=== PATIENT | female | born 1985 | race Caucasian/White ===

== ENCOUNTER 2018-09-12 12:03 | Emergency (ER) | payer BC ==
--- NOTE | 2018-09-12 12:22 | EDM.PDOC ---
ED HPI GENERAL MEDICAL PROBLEM - General Chief Complaint: Chest Pain Stated Complaint: CHEST PAIN AND LIGHT HEADED Time Seen by Provider: 09/12/18 12:22 - History of Present Illness INITIAL COMMENTS - FREE TEXT/NARRATIVE: 33-year-old female presents emergency room with chest pain. This pain started shortly before noon. Lasted 2-3 minutes and started to improve it was a sharp substernal chest pain worsened by breathing. Prior to this the patient has not had any problems. The pain is improving to the point that she needs nothing for the pain control this point but it is still there. Patient has no significant family history of coronary artery disease no history of blood clots no family history of blood clots or bleeding abnormalities. She has no history of GERD or dyspepsia and no symptoms to go along with this. The patient does not smoke. She has been off oral control pills for nearly 2 years absolutely denies the possibility of . Mid-Sternal Chest Pain Score (Numeric/FACES): 7 - Related Data Allergies Allergy/AdvReac Type Severity Reaction Status Date / Time No Known Allergies Allergy Verified 09/12/18 12:10 Home Meds: Home Meds . [No Known Home Meds] 09/12/18 [History] Past Medical History - Past Health History Medical/Surgical History: Denies Medical/Surgical History Social & Family History - Tobacco Use Smoking Status *Q: Never Smoker - Caffeine Use Caffeine Use: Reports: Soda - Recreational Drug Use Recreational Drug Use: No ED ROS GENERAL - Review of Systems Review Of Systems: See Below Constitutional: Reports: No Symptoms HEENT: Reports: No Symptoms Respiratory: Denies: Shortness of Breath, Cough, Sputum Cardiovascular: Reports: Chest Pain. Denies: Dyspnea on Exertion, Edema, Palpitations, Syncope Endocrine: Reports: No Symptoms GI/Abdominal: Reports: No Symptoms : Reports: No Symptoms Neurological: Reports: No Symptoms Psychiatric: Reports: No Symptoms ED EXAM, GENERAL - Physical Exam Exam: See Below Exam Limited By: No Limitations General Appearance: Alert, No Apparent Distress Head: Atraumatic, Normocephalic Neck: Normal Inspection, Supple, Non-Tender, Full Range of Motion Respiratory/Chest: No Respiratory Distress, Lungs Clear, Normal Breath Sounds, No Accessory Muscle Use, Chest Non-Tender Cardiovascular: Normal Peripheral Pulses, Regular Rate, Rhythm, No Edema, No Murmur GI/Abdominal: Normal Bowel Sounds, Soft, Non-Tender Back Exam: Normal Inspection, Full Range of Motion. No: CVA Tenderness (L), CVA Tenderness (R) Extremities: Normal Inspection, No Pedal Edema EKG INTERPRETATION EKG Date: 09/12/18 Rhythm: NSR Barling: Normal P-Wave: Present QRS: Normal ST-T: Normal QT: Normal Comparison: NA - No Prior EKG EKG Interpretation Comments: Normal EKG Course - Vital Signs Last Recorded V/S: Last Vital Signs Temp 36.4 C 09/12/18 12:08 Pulse 88 09/12/18 12:08 Resp 16 09/12/18 12:08 BP 125/88 09/12/18 12:08 Pulse Ox 99 09/12/18 12:08 - Orders/Labs/Meds Orders: Active Orders 24 hr Category Date Time Status EKG Documentation Completion [RC] STAT Care 09/12/18 12:32 Active Labs: Laboratory Tests 09/12/18 09/12/18 09/12/18 Range/Units 12:49 12:49 12:49 D-Dimer, Quantitative < 0.19 L (0.19-0.50) mg/L Sodium 141 (136-145) mEq/L Potassium 3.3 L (3.5-5.1) mEq/L Chloride 105 (98-107) mEq/L Carbon Dioxide 26 (21-32) mEq/L Anion Gap 13.3 (5-15) BUN 21 H (7-18) mg/dL Creatinine 0.8 (0.55-1.02) mg/dL Est Cr Clr Drug Dosing 87.18 mL/min Estimated GFR (MDRD) > 60 (>60) mL/min BUN/Creatinine Ratio 26.3 H (14-18) Glucose 127 H (74-106) mg/dL Calcium 8.8 (8.5-10.1) mg/dL Troponin I < 0.017 (0.00-0.056) ng/mL HCG, Qual Negative (NEGATIVE) - Re-Assessments/Exams Free Text/Narrative Re-Assessment/Exam: 09/12/18 14:12 Patient continues to improve on her own basic metabolic panel unremarkable d- dimer unremarkable troponin unremarkable my interpretation chest x-ray is that of normal. The patient feels comfortable going home at this point he agrees to follow-up is recommended Departure - Departure Time of Disposition: 14:14 Disposition: Home, Self-Care 01 Clinical Impression: Chest wall pain Referrals: PCP,None [Primary Care Provider] - Forms: ED Department Discharge Additional Instructions: Return to the emergency room with any questions problems worsening symptoms. Use Naprosyn one or 2 twice daily with meals as needed for discomfort. Take with meals. Follow-up in the Hospital clinic on Sunday if needed. [phone] - My Orders Last 24 Hours: My Active Orders 09/12/18 12:32 EKG Documentation Completion [RC] STAT - Assessment/Plan Last 24 Hours: My Active Orders 09/12/18 12:32 EKG Documentation Completion [RC] STAT
--- NOTE | 2018-09-12 14:15 | CR ---
Chest: Two views of the chest were obtained. Comparison: No prior chest x-ray. Heart size and mediastinum are normal. Lungs are clear. Bony structures appear unremarkable for the patient's age. Impression: 1. Nothing acute is seen on two-view chest x-ray. Diagnostic code #1
== END 2018-09-12 14:33 | disposition home or self-care (01) ==
LOC: JD.ED 12:03
DX: R07.2 Precordial pain (principal)
CPT/HCPCS: 36415; 71046; 71046-26; 80048; 84484; 84703; 85379; 93005; 93010; 99284; 99284-25